=== PATIENT | male | born 1995 | race Caucasian/White ===

== ENCOUNTER → 2017-02-08 | Outpatient (CLI) | payer BC ==
--- NOTE | 2017-02-08 17:50 | DIAGNOSTIC IMAGING REPORT ---
L-SPINE MIN 4 VIEWS ROUTINE CLINICAL HISTORY: Back pain status post trauma COMPARISON STUDY: No previous studies for comparison. FINDINGS: There are 5 lumbar type vertebral bodies. No fractures or subluxations are visualized. There is a minimal thoracolumbar spinal curvature convex to the left. IMPRESSION: No fractures or subluxations identified. Electronically signed by: Rui Carmona M.D. 02/08/2017 5:49 PM Dictated Date/Time: 02/08/2017 5:49 PM
--- NOTE | 2017-02-08 17:51 | DIAGNOSTIC IMAGING REPORT ---
THORACIC SPINE 3 VIEWS ROUTINE CLINICAL HISTORY: Lower thoracic pain status post trauma COMPARISON STUDY: No previous studies for comparison. FINDINGS: The paraspinal line is not displaced. No acute fractures or subluxations are visualized on conventional radiographic imaging. IMPRESSION: No fractures or subluxations identified. Electronically signed by: Rui Carmona M.D. 02/08/2017 5:50 PM Dictated Date/Time: 02/08/2017 5:49 PM
== END | disposition home or self-care (01) ==
LOC: C.RAD 17:16
PROVIDERS: ATTEND Nurse Practitioner Family
DX: T14.8 Other injury of unspecified body region (principal); X58.XXXA Exposure to other specified factors, initial encounter

== ENCOUNTER → 2017-07-12 | Outpatient (CLI) | payer BC ==
--- NOTE | 2017-07-12 15:13 | DIAGNOSTIC IMAGING REPORT ---
RIGHT INGUINAL ULTRASOUND TO ASSESS FOR HERNIA CLINICAL HISTORY: Right inguinal pain. COMPARISON STUDY: No previous studies for comparison. FINDINGS: Sonography of the right inguinal region with and without Valsalva demonstrated no right inguinal hernia. No sonographic abnormality was identified within the right inguinal region. IMPRESSION: No right inguinal hernia by sonography. Electronically signed by: Real Aguilar M.D. 07/12/2017 3:11 PM Dictated Date/Time: 07/12/2017 3:11 PM
== END | disposition home or self-care (01) ==
LOC: C.ULTR 07:56
PROVIDERS: ATTEND Obstetrics & Gynecology
DX: R10.31 Right lower quadrant pain (principal)